=== PATIENT | female | born 1960 | race Caucasian/White ===

== ENCOUNTER 2023-05-31 03:58 | Day surgery (SDC) | payer OTHER, SELFPAY ==
[2023-05-20 15:28] VITALS: BMI 33.8
[2023-05-31] MEDS: LACTATED RINGERS 1,000 ML 150 ML IV CONT (07:41)
[2023-05-31 07:47] VITALS: BP 146/77; PULSE 85; RESP 18; TEMP 36.1; O2SAT 99; BMI 33.7
--- NOTE | 2023-05-31 08:11 | WPDANESEPPF ---
Anes - Initial Pre Proc Eval Procedure: Operation Date: 05/31/23 08:30 Proposed Procedures p Screening Colonoscopy - Edwin Mclaughlin MD Date/Time: 05/31/23 08:11 Surgeon: Edwin Mclaughlin MD Pre Op Diagnosis: neoplasm screening Patient Data Age: 62 Gender: F Height: 1.63 m Weight: 89 kg Last Vital Signs Temp 36.1 C L 05/31/23 07:47 Pulse 85 05/31/23 07:47 Resp 18 05/31/23 07:47 BP 146/77 H 05/31/23 07:47 Pulse Ox 99 05/31/23 07:47 O2 Del Method Room Air 05/31/23 07:47 Allergies Allergy/AdvReac Type Severity Reaction Status Date / Time bee venom protein (honey bee) Allergy Anaphylaxis Verified 05/31/23 07:42 Home Medications Medication Instructions Recorded Confirmed Type albuterol sulfate 90 mcg/actuation 2 puff inhalation QID PRN 05/20/23 05/31/23 History aerosol inhaler Shortness Of Breath amlodipine 10 mg tablet 10 mg PO DAILY 05/20/23 05/31/23 History atorvastatin 20 mg tablet 20 mg PO DAILY 05/20/23 05/31/23 History buspirone 30 mg tablet 30 mg PO TID 05/20/23 05/31/23 History cetirizine 10 mg tablet 10 mg PO DAILY 05/20/23 05/31/23 History duloxetine 60 mg capsule,delayed 120 mg PO DAILY 05/20/23 05/31/23 History release epinephrine 0.3 mg/0.3 mL 0.3 mg subcut DIRECTED PRN 05/20/23 05/20/23 History injection, auto-injector Anaphylaxis ergocalciferol (vitamin D2) 1,250 1,250 mcg PO WEEKLY 05/20/23 05/31/23 History mcg (50,000 unit) capsule (Vitamin D2) fluticasone 100 mcg-salmeterol 50 1 inh inhalation BID 05/20/23 05/31/23 History mcg/dose blistr powdr for inhalation (Advair Diskus) fluticasone propionate 50 1 spray intranasal DAILY 05/20/23 05/31/23 History mcg/actuation nasal spray,suspension gabapentin 100 mg capsule 100 mg PO TID 05/20/23 05/31/23 History hydrochlorothiazide 25 mg tablet 50 mg PO DAILY 05/20/23 05/31/23 History losartan 100 mg tablet 100 mg PO DAILY 05/20/23 05/31/23 History nicotine 21 mg/24 hr daily 1 patch transdermal DAILY 05/20/23 05/31/23 History transdermal patch omeprazole 20 mg capsule,delayed 20 mg PO QAM 05/20/23 05/31/23 History release quetiapine 25 mg tablet 25 mg PO QAM 05/20/23 05/31/23 History quetiapine 300 mg tablet 400 mg PO HS 05/20/23 05/31/23 History Patient hx anesthesia problems: none Family hx anesthesia problems: none Results Review: All pre-operative results and documents have been reviewed as part of the pre-operative evaluation. [facility] Past Medical History Medical History (Updated 05/31/23 @ 08:11 by Santos Luz MD) COPD (chronic obstructive pulmonary disease) ETOH abuse Obesity Social History Social History Years smoked: 40 Smoking status: Former smoker Alcohol intake: current Substance use type: marijuana Living arrangements: care home Spiritual care concerns: No Anes - Eval Final PreProcedure Day of Procedure 05/31/23 08:11 Patient weight: obese Heart: regular rate and rhythm Lungs: decreased breath sounds Airway: Mallampati scale class II Neurological: alert and oriented Last oral intake: >/= 8 hours ASA classification: III Emergent: no Anesthetic plan: proceed Anesthesia type and monitoring: general GIVS and standard monitoring Results Review: All pre-operative results and documents have been reviewed as part of the pre-operative evaluation. Informed Consent: The patient's anesthetic plan and its attendant risks and benefits were discussed with the patient/family/POA. Questions were solicited and answers provided to the satisfaction of the patient/family/POA.
--- NOTE | 2023-05-31 08:30 | PM.HPGS ---
History of Present Illness History of Present Illness Consent: Risks, benefits, and alternatives have been discussed and questions answered. Patient agrees to proceed with procedure. Chief complaint: neoplasm screening Narrative: Romi Carroll is a 62 year old female Presents for screening colonoscopy. Patient reports her current weight appetite and bowel movements are normal. She reports a colonoscopy more than 10 years ago elsewhere. The results not available for review. Patient's family history noncontributory. Review of Systems Review of Systems: Review of systems noncontributory. [facility] Past Medical History Medical History (Updated 05/31/23 @ 08:31 by Edwin Mclaughlin MD) COPD (chronic obstructive pulmonary disease) ETOH abuse Obesity Social History Social History Years smoked: 40 Smoking status: Former smoker Alcohol intake: current Substance use type: marijuana Living arrangements: care home Spiritual care concerns: No Meds Home Medications and Allergies Home Medications Medication Instructions Recorded Confirmed Type albuterol sulfate 90 mcg/actuation 2 puff inhalation QID PRN 05/20/23 05/31/23 History aerosol inhaler Shortness Of Breath amlodipine 10 mg tablet 10 mg PO DAILY 05/20/23 05/31/23 History atorvastatin 20 mg tablet 20 mg PO DAILY 05/20/23 05/31/23 History buspirone 30 mg tablet 30 mg PO TID 05/20/23 05/31/23 History cetirizine 10 mg tablet 10 mg PO DAILY 05/20/23 05/31/23 History duloxetine 60 mg capsule,delayed 120 mg PO DAILY 05/20/23 05/31/23 History release epinephrine 0.3 mg/0.3 mL 0.3 mg subcut DIRECTED PRN 05/20/23 05/20/23 History injection, auto-injector Anaphylaxis ergocalciferol (vitamin D2) 1,250 1,250 mcg PO WEEKLY 05/20/23 05/31/23 History mcg (50,000 unit) capsule (Vitamin D2) fluticasone 100 mcg-salmeterol 50 1 inh inhalation BID 05/20/23 05/31/23 History mcg/dose blistr powdr for inhalation (Advair Diskus) fluticasone propionate 50 1 spray intranasal DAILY 05/20/23 05/31/23 History mcg/actuation nasal spray,suspension gabapentin 100 mg capsule 100 mg PO TID 05/20/23 05/31/23 History hydrochlorothiazide 25 mg tablet 50 mg PO DAILY 05/20/23 05/31/23 History losartan 100 mg tablet 100 mg PO DAILY 05/20/23 05/31/23 History nicotine 21 mg/24 hr daily 1 patch transdermal DAILY 05/20/23 05/31/23 History transdermal patch omeprazole 20 mg capsule,delayed 20 mg PO QAM 05/20/23 05/31/23 History release quetiapine 25 mg tablet 25 mg PO QAM 05/20/23 05/31/23 History quetiapine 300 mg tablet 400 mg PO HS 05/20/23 05/31/23 History Allergies Allergy/AdvReac Type Severity Reaction Status Date / Time bee venom protein (honey bee) Allergy Anaphylaxis Verified 05/31/23 07:42 Vital Signs Vital Signs - 24 hr 05/31/23 07:47 Temperature 97 F L Pulse Rate 85 Respiratory Rate 18 Blood Pressure 146/77 H Pulse Oximetry 99 Oxygen Delivery Room Air Exam Narrative: Physical exam reveals patient to be alert. Vital signs stable. HEENT exam is unremarkable. Patient is anicteric. Lungs are clear to auscultation and percussion. Heart without murmur. Abdomen bowel sounds are present soft nontender with no organomegaly. Digital rectal exam normal. Assessment and Plan Assessment and plan (1) Encounter for screening colonoscopy: Code(s): Z12.11 - Encounter for screening for malignant neoplasm of colon Status: Acute Assessment and Plan: Screening colonoscopy advised because of patient's age. Patient appears to be at average risk for colon polyps. Further recommendations may be given after endoscopy.
[2023-05-31 09:14] VITALS: BP 142/93; PULSE 74; RESP 17; O2SAT 100
[2023-05-31 09:24] VITALS: BP 162/95; PULSE 75; RESP 16; O2SAT 100
[2023-05-31 09:34] VITALS: BP 177/85; PULSE 72; RESP 16; O2SAT 100
== END 2023-05-31 09:45 | disposition home or self-care (01) ==
PROVIDERS: Visit Provider Internal Medicine Gastroenterology
PROC: 0DJD8ZZ Inspection of Lower Intestinal Tract, Via Natural or Artificial Opening Endoscopic (ICD-10-PCS; CPT 45378; principal; 2023-05-31 08:30)
DX: Z12.11 Encounter for screening for malignant neoplasm of colon (principal); D12.2 Benign neoplasm of ascending colon; D12.5 Benign neoplasm of sigmoid colon; D12.8 Benign neoplasm of rectum; K57.30 Diverticulosis of large intestine without perforation or abscess without bleeding; Z79.51 Long term (current) use of inhaled steroids; J44.9 Chronic obstructive pulmonary disease, unspecified; E66.9 Obesity, unspecified; Z68.33 Body mass index [BMI] 33.0-33.9, adult; Z87.891 Personal history of nicotine dependence; F12.90 Cannabis use, unspecified, uncomplicated
CPT/HCPCS: 45385; 88305; J2704; J7120

== ENCOUNTER 2023-08-30 09:01 | Outpatient (CLI) | payer OTHER, SELFPAY ==
--- NOTE | 2023-09-01 12:48 | WPDHOLTEREM ---
Holter/Event Monitor Holter/Event Monitor Date of procedure: 08/30/23 Holter/Event Procedure: 24 Hr Holter Monitor Diagnosis: Syncope Indications: Syncope Image/Tracing Quality: Adequate. Total analysis time of 23 hours and 59 minutes. Findin. Predominant rhythm is sinus rhythm with an average heart rate of 92bpm. The minimum heart rate was 66bpm. The maximum heart rate was 132bpm. 2. No evidence of atrial fibrillation, SVT, pauses, heart block, or ventricular tachycardia. 3. PAC burden is <0.01%. 4. PVC burden is <0.01%. 5. Patient did not report any symptoms while wearing the monitor. Conclusion: 1. Unremarkable Holter monitor.
== END 2023-08-30 09:02 | disposition home or self-care (01) ==
PROVIDERS: PCP Nurse Practitioner Family; Visit Provider Nurse Practitioner Family
DX: R55 Syncope and collapse (principal)
CPT/HCPCS: 93225; 93226

== ENCOUNTER 2024-08-23 02:27 | Day surgery (SDC) | payer OTHER, SELFPAY ==
[2024-08-14 12:49] VITALS: BMI 34.4
[2024-08-23 09:02] VITALS: BP 89/57; PULSE 100; RESP 18; TEMP 36.3; O2SAT 95; BMI 32.9
[2024-08-23] MEDS: LACTATED RINGERS 1,000 ML 150 ML IV CONT (09:06)
[2024-08-23 09:19] VITALS: BP 117/58
--- NOTE | 2024-08-23 09:22 | WPDANESEPPF ---
Anes - Initial Pre Proc Eval Procedure: Operation Date: 08/23/24 09:30 Proposed Procedures p Screening Colonoscopy - Joe Davis MD Date/Time: 08/23/24 09:22 Surgeon: Joe Davis MD Pre Op Diagnosis: hx colon polyps, scrn malignant neoplasm colon Patient Data Age: 64 Gender: F Height: 1.63 m Weight: 87.1 kg Last Vital Signs Temp 97.3 F L 08/23/24 09:02 Pulse 100 08/23/24 09:02 Resp 18 08/23/24 09:02 BP 117/58 L 08/23/24 09:19 Pulse Ox 95 08/23/24 09:02 O2 Del Method Room Air 08/23/24 09:02 Allergies Allergy/AdvReac Type Severity Reaction Status Date / Time bee venom protein (honey bee) Allergy Anaphylaxis Verified 08/23/24 09:00 Home Medications Medication Instructions Recorded Confirmed Type albuterol sulfate 90 mcg/actuation 2 puff inhalation QID PRN 05/20/23 08/14/24 History aerosol inhaler Shortness Of Breath amlodipine 10 mg tablet 10 mg PO DAILY 05/20/23 08/14/24 History atorvastatin 20 mg tablet 20 mg PO DAILY 05/20/23 08/14/24 History buspirone 30 mg tablet 30 mg PO TID 05/20/23 08/14/24 History cetirizine 10 mg tablet 10 mg PO DAILY 05/20/23 08/14/24 History duloxetine 60 mg capsule,delayed 120 mg PO DAILY 05/20/23 08/14/24 History release epinephrine 0.3 mg/0.3 mL 0.3 mg subcut DIRECTED PRN 05/20/23 08/14/24 History injection, auto-injector Anaphylaxis ergocalciferol (vitamin D2) 1,250 1,250 mcg PO WEEKLY 05/20/23 08/14/24 History mcg (50,000 unit) capsule (Vitamin D2) fluticasone 100 mcg-salmeterol 50 1 inh inhalation BID 05/20/23 08/14/24 History mcg/dose blistr powdr for inhalation (Advair Diskus) fluticasone propionate 50 1 spray intranasal DAILY 05/20/23 08/14/24 History mcg/actuation nasal spray,suspension gabapentin 100 mg capsule 100 mg PO TID 05/20/23 08/14/24 History losartan 100 mg tablet 100 mg PO DAILY 05/20/23 08/14/24 History nicotine 21 mg/24 hr daily 1 patch transdermal DAILY 05/20/23 08/14/24 History transdermal patch omeprazole 20 mg capsule,delayed 20 mg PO QAM 05/20/23 08/14/24 History release quetiapine 25 mg tablet 100 mg PO QAM 05/20/23 08/14/24 History quetiapine 300 mg tablet 300 mg PO HS 05/20/23 08/14/24 History lithium carbonate 300 mg capsule 300 mg PO BID 08/14/24 08/14/24 History Patient hx anesthesia problems: none Family hx anesthesia problems: none Results Review: All pre-operative results and documents have been reviewed as part of the pre-operative evaluation. [facility] Past Medical History Medical History COPD (chronic obstructive pulmonary disease) ETOH abuse Obesity Social History Social History Years smoked: 40 Smoking status: Former smoker Tobacco type: cigarettes Alcohol intake: current Drinks per week: 3 Substance use: current Substance use type: marijuana Other substance usage details: weekly Living arrangements: assisted living Spiritual care concerns: No Anes - Eval Final PreProcedure Day of Procedure 08/23/24 09:22 Patient weight: obese Heart: regular rate and rhythm Lungs: clear to auscultation Airway: Mallampati scale and special considerations (Edentulous. ) Neurological: alert and oriented Last oral intake: >/= 8 hours ASA classification: III Emergent: no Anesthetic plan: proceed Anesthesia type and monitoring: general GIVS and standard monitoring Results Review: All pre-operative results and documents have been reviewed as part of the pre-operative evaluation. HTN, JOSE on CPAP, smoker 1 ppd for 40 years, ETOH use 5 drinks/week. Informed Consent: The patient's anesthetic plan and its attendant risks and benefits were discussed with the patient/family/POA. Questions were solicited and answers provided to the satisfaction of the patient/family/POA.
--- NOTE | 2024-08-23 09:31 | PM.IMHP ---
H&P: HPI History of Present Illness Date/Time: 08/23/24 09:31 Chief Complaint: the patient has a history of colonic polyps. Here for follow-up. Review of Systems Review of Systems: All systems reviewed & are unremarkable except as noted in HPI and below PMFSH Past Medical History Medical History COPD (chronic obstructive pulmonary disease) ETOH abuse Obesity Social History Social History Years smoked: 40 Smoking status: Former smoker Tobacco type: cigarettes Alcohol intake: current Drinks per week: 3 Substance use: current Substance use type: marijuana Other substance usage details: weekly Living arrangements: assisted living Spiritual care concerns: No Meds Home Medications and Allergies Home Medications Medication Instructions Recorded Confirmed Type albuterol sulfate 90 mcg/actuation 2 puff inhalation QID PRN 05/20/23 08/14/24 History aerosol inhaler Shortness Of Breath amlodipine 10 mg tablet 10 mg PO DAILY 05/20/23 08/14/24 History atorvastatin 20 mg tablet 20 mg PO DAILY 05/20/23 08/14/24 History buspirone 30 mg tablet 30 mg PO TID 05/20/23 08/14/24 History cetirizine 10 mg tablet 10 mg PO DAILY 05/20/23 08/14/24 History duloxetine 60 mg capsule,delayed 120 mg PO DAILY 05/20/23 08/14/24 History release epinephrine 0.3 mg/0.3 mL 0.3 mg subcut DIRECTED PRN 05/20/23 08/14/24 History injection, auto-injector Anaphylaxis ergocalciferol (vitamin D2) 1,250 1,250 mcg PO WEEKLY 05/20/23 08/14/24 History mcg (50,000 unit) capsule (Vitamin D2) fluticasone 100 mcg-salmeterol 50 1 inh inhalation BID 05/20/23 08/14/24 History mcg/dose blistr powdr for inhalation (Advair Diskus) fluticasone propionate 50 1 spray intranasal DAILY 05/20/23 08/14/24 History mcg/actuation nasal spray,suspension gabapentin 100 mg capsule 100 mg PO TID 05/20/23 08/14/24 History losartan 100 mg tablet 100 mg PO DAILY 05/20/23 08/14/24 History nicotine 21 mg/24 hr daily 1 patch transdermal DAILY 05/20/23 08/14/24 History transdermal patch omeprazole 20 mg capsule,delayed 20 mg PO QAM 05/20/23 08/14/24 History release quetiapine 25 mg tablet 100 mg PO QAM 05/20/23 08/14/24 History quetiapine 300 mg tablet 300 mg PO HS 05/20/23 08/14/24 History lithium carbonate 300 mg capsule 300 mg PO BID 08/14/24 08/14/24 History Allergies Allergy/AdvReac Type Severity Reaction Status Date / Time bee venom protein (honey bee) Allergy Anaphylaxis Verified 08/23/24 09:00 Vital Signs Vital Signs - 24 hr 08/23/24 09:02 08/23/24 09:19 Temperature 97.3 F L Pulse Rate 100 Respiratory Rate 18 Blood Pressure 89/57 L 117/58 L Pulse Oximetry 95 Oxygen Delivery Room Air Assessment and Plan Assessment and plan (1) Encounter for screening colonoscopy: Code(s): Z12.11 - Encounter for screening for malignant neoplasm of colon Status: Acute Plan Patient deemed a good candidate for colonoscopy. We will proceed.
[2024-08-23 10:06] VITALS: BP 94/62; PULSE 71; RESP 19; O2SAT 94
--- NOTE | 2024-08-23 10:12 | P.HP_ITS ---
H&P: HPI History of Present Illness Date/Time: 08/23/24 10:12 Chief Complaint: The patient has a history of colonic polyps, here for surveillance colonoscopy. [facility] Past Medical History Medical History COPD (chronic obstructive pulmonary disease) ETOH abuse Obesity Social History Social History Years smoked: 40 Smoking status: Former smoker Tobacco type: cigarettes Alcohol intake: current Drinks per week: 3 Substance use: current Substance use type: marijuana Other substance usage details: weekly Living arrangements: assisted living Spiritual care concerns: No Meds Home Medications and Allergies Home Medications Medication Instructions Recorded Confirmed Type albuterol sulfate 90 mcg/actuation 2 puff inhalation QID PRN 05/20/23 08/14/24 History aerosol inhaler Shortness Of Breath amlodipine 10 mg tablet 10 mg PO DAILY 05/20/23 08/14/24 History atorvastatin 20 mg tablet 20 mg PO DAILY 05/20/23 08/14/24 History buspirone 30 mg tablet 30 mg PO TID 05/20/23 08/14/24 History cetirizine 10 mg tablet 10 mg PO DAILY 05/20/23 08/14/24 History duloxetine 60 mg capsule,delayed 120 mg PO DAILY 05/20/23 08/14/24 History release epinephrine 0.3 mg/0.3 mL 0.3 mg subcut DIRECTED PRN 05/20/23 08/14/24 History injection, auto-injector Anaphylaxis ergocalciferol (vitamin D2) 1,250 1,250 mcg PO WEEKLY 05/20/23 08/14/24 History mcg (50,000 unit) capsule (Vitamin D2) fluticasone 100 mcg-salmeterol 50 1 inh inhalation BID 05/20/23 08/14/24 History mcg/dose blistr powdr for inhalation (Advair Diskus) fluticasone propionate 50 1 spray intranasal DAILY 05/20/23 08/14/24 History mcg/actuation nasal spray,suspension gabapentin 100 mg capsule 100 mg PO TID 05/20/23 08/14/24 History losartan 100 mg tablet 100 mg PO DAILY 05/20/23 08/14/24 History nicotine 21 mg/24 hr daily 1 patch transdermal DAILY 05/20/23 08/14/24 History transdermal patch omeprazole 20 mg capsule,delayed 20 mg PO QAM 05/20/23 08/14/24 History release quetiapine 25 mg tablet 100 mg PO QAM 05/20/23 08/14/24 History quetiapine 300 mg tablet 300 mg PO HS 05/20/23 08/14/24 History lithium carbonate 300 mg capsule 300 mg PO BID 08/14/24 08/14/24 History Allergies Allergy/AdvReac Type Severity Reaction Status Date / Time bee venom protein (honey bee) Allergy Anaphylaxis Verified 08/23/24 09:00 Vital Signs Vital Signs - 24 hr 08/23/24 09:02 08/23/24 09:19 Temperature 97.3 F L Pulse Rate 100 Respiratory Rate 18 Blood Pressure 89/57 L 117/58 L Pulse Oximetry 95 Oxygen Delivery Room Air Assessment and Plan Assessment and plan (1) Encounter for screening colonoscopy: Code(s): Z12.11 - Encounter for screening for malignant neoplasm of colon Status: Acute Assessment and Plan: Patient deemed a good candidate for colonoscopy. Will proceed.
[2024-08-23 10:16] VITALS: BP 125/59; PULSE 70; RESP 20; O2SAT 99
[2024-08-23 10:26] VITALS: BP 132/74; PULSE 67; RESP 18; O2SAT 100
--- NOTE | 2024-08-23 12:57 | SUR.OPER ---
Received call from pathology needing clarification of Ascending colon polyp locations. Called Dr Davis at [phone] to discuss labeling of ascending colon polyps and the need for pathology to have a more specific label. Orders received to label the bigger ascending polyp proximal and the smaller one distal ascending polyp. Pathology orders placed to reflect the changes along with the procedure documentation.
== END 2024-08-23 10:40 | disposition home or self-care (01) ==
PROVIDERS: PCP Nurse Practitioner Family; Visit Provider Internal Medicine Gastroenterology
PROC: 0DJD8ZZ Inspection of Lower Intestinal Tract, Via Natural or Artificial Opening Endoscopic (ICD-10-PCS; CPT 45378; principal; 2024-08-23 09:30)
DX: Z12.11 Encounter for screening for malignant neoplasm of colon (principal); D12.2 Benign neoplasm of ascending colon; D12.5 Benign neoplasm of sigmoid colon; K57.30 Diverticulosis of large intestine without perforation or abscess without bleeding; J44.9 Chronic obstructive pulmonary disease, unspecified; Z87.891 Personal history of nicotine dependence; E66.9 Obesity, unspecified; Z68.33 Body mass index [BMI] 33.0-33.9, adult; Z79.51 Long term (current) use of inhaled steroids
CPT/HCPCS: 45385; 45390; 88305; J2003; J2704; J7120